=== PATIENT | male | born 1965 | race Caucasian/White ===

== ENCOUNTER 2019-04-16 13:33 | Observation (INO) | payer OTHER ==
[~2019-04-16] VITALS: Ht 188 cm; Wt 87.4 kg
[2019-04-16 13:56] LABS: BASOPHILS ABSOLUTE AUTO 0.08 K/mm3 (0.00-0.23); BASOPHILS PERCENT AUTO 1 % (0-2); EOSINOPHILS ABSOLUTE AUTO 0.15 K/mm3 (0.00-0.68); EOSINOPHILS PERCENT AUTO 1 % (0-6); Hemoglobin 18.1 g/dL (13.5-17.5); IMMATURE GRAN ABSOLUTE AUTO 0.06 K/mm3 (0.00-0.10); IMMATURE GRAN PERCENT AUTO 1 % (0-1); LYMPHOCYTES ABSOLUTE AUTO 1.97 K/mm3 (0.84-5.20); LYMPHOCYTES PERCENT AUTO 17 % (21-46); MONOCYTES ABSOLUTE AUTO 0.68 K/mm3 (0.16-1.47); MONOCYTES PERCENT AUTO 6 % (4-13); Mean Corpuscular HGB 30.1 pg (26.0-34.0); Mean Corpuscular HGB Conc 32.8 g/dL (31.5-36.5); Mean Corpuscular Volume 92 fL (80-100); Mean Platelet Volume 9.4 fL (9.1-12.4); NEUTROPHILS ABSOLUTE AUTO 8.62 K/mm3 (1.96-9.15); NEUTROPHILS PERCENT AUTO 75 % (41-73); Platelet Count 254 K/mm3 (150-400); RDW Coefficient Variation 13.7 % (11.7-14.2); RDW Standard Deviation 46.5 fL (35.1-46.3); Red Blood Cell Count 6.02 M/mm3 (4.30-5.90); White Blood Cell Count 11.56 K/mm3 (4.00-11.30)
[2019-04-16 13:58] LABS: Hematocrit 55.2 % (37.0-53.0)
[2019-04-16 14:13] LABS: Alanine Aminotransfer (ALT/SGP 44 U/L (12-78); Albumin, Blood 3.6 g/dL (3.4-5.0); Albumin/Globulin Ratio 0.9 (0.8-1.8); Alk Phos 112 U/L (50-136); Anion Gap 9 mmol/L (6-16); Aspartate Aminotrans (AST/SGOT 53 U/L (12-37); Blood Urea Nitrogen 13 mg/dL (8-24); Bun/Creatinine Ratio 19.4 (12.0-20.0); CO2, Blood 20 mmol/L (21-32); Calcium, Blood 8.6 mg/dL (8.5-10.1); Chloride, Blood 110 mmol/L (98-108); Creatinine, Blood 0.67 mg/dL (0.60-1.20); Globulin, Blood 4.1 g/dL (2.2-4.0); Glomerular Filtration Rate >60 (60-); Glucose, Blood 148 mg/dL (70-99); Potassium, Blood 4.4 mmol/L (3.5-5.5); Sodium, Blood 139 mmol/L (136-145); Total Protein, Blood 7.7 g/dL (6.4-8.2)
[2019-04-16 15:50] LABS: U Amphetamine Screen DETECTED; U Barbituate Screen Not Detected; U Benzodiazapine Screen Not Detected; U Buprenorphine Screen Not Detected; U Cannabinoids Screen DETECTED; U Cocaine Screen Not Detected; U Methadone Screen Not Detected; U Methamphetamine Screen DETECTED; U Opiates Screen Not Detected; U Oxycodone Screen Not Detected; U Phencyclidine Screen Not Detected; U Propoxyphene Screen Not Detected
--- NOTE | 2019-04-16 18:37 | NUR ---
PT ARRIVED TO UNIT FROM ED A&OX4. NEURO CHECKS WNL. VERY PAINFUL W/MOVEMENT. R NARES OOZING BLOOD UPON ARRIVAL. SEEMS TO HAVE SUBSIDED. PLACED ICEPACK TO R SIDE OF FACE FOR COMFORT. MEDICATED PER ORDERS FOR NAUSEA AND PAIN. PT REPORTS CANNOT TAKE FENTANYL; CAUSES EMESIS. PLACED CALL OUT TO DR BENSON REGARDING PAIN MANAGEMENT. PT IS RESTING W/EYES CLOSED W/CALL LIGHT IN REACH. BED ALARM ON FOR SAFETY. IV FLUIDS INFUSING W/O DIFFICULTY.
--- NOTE | 2019-04-17 06:31 | NUR ---
PT HAD NO ACUTE CHANGES T/O NIGHT. HR SINUS HUYEN 50-60'S W/PAC PER TELE MONITOR, OTHER VSS. PT CONT TO REP ONGOING DIZZINESS W/HEAD MVMT, NO OHER NEURO DEFICITS NOTED. PT REMAINS PAINFUL, REP PAIN IN FACE AND RIBS. PAIN MGD PER EMAR AND W/ICE. PT ESSENCE CLEAR LIQ PO, REMAINS NAUSEOUS, NO EMESIS THIS SHIFT. IVF CONT PER ORDERS. PT USING CALL LIGHT FOR ASSISTANCE, WILL CONT TO MONITOR UNTIL REP GIVEN TO ONCOMING RN.
[2019-04-17 08:12] LABS: BASOPHILS ABSOLUTE AUTO 0.05 K/mm3 (0.00-0.23); BASOPHILS PERCENT AUTO 1 % (0-2); EOSINOPHILS ABSOLUTE AUTO 0.23 K/mm3 (0.00-0.68); EOSINOPHILS PERCENT AUTO 2 % (0-6); Hematocrit 45.8 % (37.0-53.0); Hemoglobin 15.2 g/dL (13.5-17.5); IMMATURE GRAN ABSOLUTE AUTO 0.05 K/mm3 (0.00-0.10); IMMATURE GRAN PERCENT AUTO 1 % (0-1); LYMPHOCYTES ABSOLUTE AUTO 1.84 K/mm3 (0.84-5.20); LYMPHOCYTES PERCENT AUTO 19 % (21-46); MONOCYTES ABSOLUTE AUTO 0.84 K/mm3 (0.16-1.47); MONOCYTES PERCENT AUTO 9 % (4-13); Mean Corpuscular HGB 29.8 pg (26.0-34.0); Mean Corpuscular HGB Conc 33.2 g/dL (31.5-36.5); Mean Corpuscular Volume 90 fL (80-100); Mean Platelet Volume 9.3 fL (9.1-12.4); NEUTROPHILS PERCENT AUTO 69 % (41-73); Platelet Count 244 K/mm3 (150-400); RDW Coefficient Variation 13.9 % (11.7-14.2); RDW Standard Deviation 45.5 fL (35.1-46.3); White Blood Cell Count 9.81 K/mm3 (4.00-11.30)
[2019-04-17 08:29] LABS: Anion Gap 6 mmol/L (6-16); Blood Urea Nitrogen 9 mg/dL (8-24); Bun/Creatinine Ratio 12.5 (12.0-20.0); CO2, Blood 26 mmol/L (21-32); Calcium, Blood 8.2 mg/dL (8.5-10.1); Chloride, Blood 108 mmol/L (98-108); Creatinine, Blood 0.72 mg/dL (0.60-1.20); Glomerular Filtration Rate >60 (60-); Glucose, Blood 98 mg/dL (70-99); Sodium, Blood 140 mmol/L (136-145)
--- NOTE | 2019-04-17 09:32 | NUR ---
NEURO CHECKS WNL DURING MORNING ASSESSMENT.
--- NOTE | 2019-04-17 10:26 | NUR ---
DIZZINESS PT C/O DIZZINESS W/MOVEMENT OF HEAD. DISCUSSED W/DR BENSON.
--- NOTE | 2019-04-17 11:14 | NUR ---
DR BENSON IN TO SEE PT.
--- NOTE | 2019-04-17 17:06 | NUR ---
SUMMARY NO ACUTE CHANGES T/O SHIFT. PT REPORTED NUMBNESS TO FACE AND DIZZINESS WHEN MOVES HEAD; DISCUSSED W/DR BENSON. MEDICATED ONCE DURING SHIFT FOR NAUSEA PER ORDERS. NOW TOLERATING REGULAR DIET. MEDICATED TWICE DURING SHIFT FOR PAIN PER ORDERS. HAS SLEPT T/O MUCH OF SHIFT BUT AWAKENS TO VOICE. CALL LIGHT IN REACH.
--- NOTE | 2019-04-18 07:10 | NUR ---
recvd report from previous shift RN shruthi, pt sleeping in bed, bed in lowest position, bed rails up x 2, call light within reach.
--- NOTE | 2019-04-18 07:48 | NUR ---
SUMMARY NO ACUTE CHANGES NOTED FROM ASSESSMENT. PT REMAINS A&O X4. NEURO CHECKS INTACT. RESP UNLABORED. PAIN MANAGED PER EMAR. PT ENC TO CALL FOR ASSISTANCE BEFORE GETTING OOB DUE TO WEAKNESS AND BLURRY VISION. CALL LIGHT IN REACH.
--- NOTE | 2019-04-18 18:12 | NUR ---
shift summary: vss, no acute changes, pt remained a/o x 4, pleasant/cooperative. no n/v, tolerated PO intake. pt showered himself this shift, states to minimal dizziness/lightheadedness when he is standing. pt states pain controlled per DEC to 4-5. pt is awaiting discharge tomorrow.
--- NOTE | 2019-04-19 05:54 | NUR ---
SHIFT SUMMARY PT A&O X4 T/O SHIFT. PT STS NO CHANGE IN N/T TO R SIDE OF FACE OVER R CHIN/LIP. PAIN MANAGED PER EMAR. ABD PAINFUL, BTX4. PT CONT. TO C/O BLURRED/DOUBLE VISION; STS VERY SLIGHT IMPROVEMENT THIS AM. PT STS DIZZINESS WHEN SITTING UP/MOVING TOO QUICKLY. SBA WHEN OOB FOR SAFETY. EDUCATION ON RISKS AND PREVENTION OF DVT'S PROVIDED; PT REFUSED SCD'S. TELEMETRY IN PLACE; SR PER PLANS EXAMINER. PT DENIES CP, NAUSEA AND SOB T/O SHIFT. CALL LIGHT IN REACH; PT DEMONSTRATES USE. WCTM UNTIL REPORT TO DAY SHIFT RN.
--- NOTE | 2019-04-19 11:34 | NUR ---
ASSUMING CARE OF PT. MEDICATED WITH ORAL DILAUDID FOR PAIN. PT DENIES ANY OTHER NEEDS. ALERT AND ORIENTED. CALL LIGHT WITHIN REACH.
[2019-04-19] MEDS ORDERED: HYDMOR2 PO (14:35)
--- NOTE | 2019-04-19 14:47 | NUR ---
DISCHARGE PT REMAINS ALERT AND ORIENTED T/O SHIFT. HE CAN BE FORGETFUL AT TIMES, BUT OTHERISE ORIENTED. PT EDUCATED ON AND RECEIVED PRINTED DC INSTRUCTIONS AND VERBALIZED AN UNDERSTANDING. HARD RX FOR DILAUDID GIVEN. IV DC'D. PCP APPT SCHEDULED FOR 04/20/19 AT [address] [facility] [address] ZAVALA. PT VERB AN UNDERSTANDING. PT VERB HE WOULD SCHEDULE HIS APPT WITH [facility] IN [place]. PT GATHERED ALL PERSONAL BELONGINGS. WAITING FOR DAUGHTER TO COME GET PT.
--- NOTE | 2019-04-19 14:59 | NUR ---
PT LEFT WITH FAMILY MEMBERS AT SIDE
== END 2019-04-19 14:58 | disposition home or self-care (01) ==
LOC: ER 13:33 → SURS 15:53
PROVIDERS: Emergency Medicine; ADMIT Surgery
DX: S06.0X9A Concussion with loss of consciousness of unspecified duration, initial encounter (principal); S02.31XA Fracture of orbital floor, right side, initial encounter for closed fracture; S02.40CA Maxillary fracture, right side, initial encounter for closed fracture; R10.31 Right lower quadrant pain; R10.32 Left lower quadrant pain; F15.10 Other stimulant abuse, uncomplicated; F17.200 Nicotine dependence, unspecified, uncomplicated; Z88.6 Allergy status to analgesic agent; Z88.5 Allergy status to narcotic agent; Z91.038 Other insect allergy status; V47.5XXA Car driver injured in collision with fixed or stationary object in traffic accident, initial encounter
CPT/HCPCS: 36415; 70450; 70487; 71260; 72125; 73090; 74177; 80048; 80053; 85025; 93005; 93010; 96361; 96365-59; 96375; 96376; 99285-25; G0378; J0696; J1170; J2405; J7030; J7120; Q9967